=== PATIENT | female | born 1970 | race Caucasian/White ===

== ENCOUNTER → 2024-07-18 06:45 | Outpatient (REF) | payer BC, SELFPAY | LOC: MRI 06:45 | PROVIDERS: ATTENDING PHYSICIAN Orthopaedic Surgery; FAMILY PHYSICIAN Family Medicine | DX: M24.811 Other specific joint derangements of right shoulder, not elsewhere classified (principal) | CPT/HCPCS: 73221 ==

== ENCOUNTER → 2024-07-18 17:45 | Outpatient (REF) | payer BC, SELFPAY | LOC: WDC 17:45 | PROVIDERS: ATTENDING PHYSICIAN Family Medicine | DX: Z12.39 Encounter for other screening for malignant neoplasm of breast (principal); Z12.31 Encounter for screening mammogram for malignant neoplasm of breast | CPT/HCPCS: 77063; 77067 ==

== ENCOUNTER → 2025-03-09 13:28 | Outpatient (REF) | payer BC, SELFPAY ==
[2025-03-09 14:54] LABS: Hematocrit 34.7 % (37.0-47.0); Hemoglobin 11.2 g/dL (12.0-16.0); Mean Corp Hgb Conc. 32.3 g/dL (33.0-37.0); Mean Corpuscular Volume 96.9 fL (81.0-99.0); Nucleated Red Blood Cells % 0 %; Platelet Count 265 10^3/uL (130-400); Red Cell Dist. Width 13.4 % (11.5-14.5)
[2025-03-09 15:24] LABS: Blood Urea Nitrogen 24 mg/dl (7-17); Calcium 8.4 mg/dl (8.4-10.2); Carbon Dioxide 25 mmol/L (22-30); Chloride 108 mmol/L (98-107); Glucose 81 mg/dl (70-99); Potassium 4.7 mmol/L (3.5-5.1); Sodium 136 mmol/L (135-145); eGFR > 60.00
== END ==
LOC: HWCARD 13:28
PROVIDERS: ATTENDING PHYSICIAN Orthopaedic Surgery; FAMILY PHYSICIAN Family Medicine
DX: Z01.818 Encounter for other preprocedural examination (principal)
CPT/HCPCS: 36415; 80048; 85025; 93005

== ENCOUNTER → 2025-07-19 17:53 | Outpatient (REF) | payer BC, SELFPAY | LOC: WDC 17:53 | PROVIDERS: ATTENDING PHYSICIAN Family Medicine | DX: Z12.31 Encounter for screening mammogram for malignant neoplasm of breast (principal) | CPT/HCPCS: 77063; 77067 ==

== ENCOUNTER → 2025-08-20 16:17 | Outpatient (REF) | payer BC, SELFPAY | LOC: RAD 16:17 | PROVIDERS: ATTENDING PHYSICIAN Family Medicine | DX: J20.8 Acute bronchitis due to other specified organisms (principal) | CPT/HCPCS: 71046 ==